=== PATIENT | female | born 1995 | race Caucasian/White ===

== ENCOUNTER 2024-07-11 09:40 | Outpatient (CLI) | payer BC ==
[2024-07-11] MEDS ORDERED: Magnevist 469MG/ML 20 ML VIAL ONE (10:06)
== END 2024-07-11 09:41 | disposition home or self-care (01) ==
LOC: CSHMRI 09:40
PROVIDERS: ATTEND Psychiatry & Neurology Neurology
DX: G45.9 Transient cerebral ischemic attack, unspecified (principal)
CPT/HCPCS: 70553; 76376; 93880